=== PATIENT | male | born 1970 | race Caucasian/White ===

== ENCOUNTER 2018-07-08 23:19 | Emergency (ER) | payer OTHER ==
[2018-07-08 23:30] VITALS: BP 138/94; PULSE 88; TEMP 98.5; BMI 63.4
[2018-07-08] MEDS ORDERED: MAG HYDROX/AL HYDROX/SIMETH 30 ML UNIT-DOSE CUP PO ONE (23:38)
--- NOTE | 2018-07-08 23:38 | PDOC ---
History of Present Illness - General History Source: Patient Exam Limitations: No Limitations - History of Present Illness Initial Comments: 07/08/18 23:48 The patient is a 48 year old male, with a significant past medical history of HTN, who presents to the ED complaining of constant LT chest pain and nausea, that began this morning. Patient reports that the chest pain has persisted for over 12 hours, and is worsened when supine, and alleviated by standing. Patient also notes a fluttering chest and feeling gassy. The patient reports he has previously experienced similar symptoms, but they were intermittent and short- lasting. Patient denies diaphoresis and SOB. Patient denies fever and chills. Patient denies vomiting, diarrhea, or constipation. Denies any other symptoms. PAST MEDICAL HISTORY: HTN PAST SURGICAL HISTORY: no significant history FAMILY HISTORY: no pertinent history SOCIAL HISTORY: Pt lives with family and is employed. MEDICATIONS: reviewed ALLERGIES: As per nursing notes General: No fevers or chills, no weakness, no weight loss HEENT: No change in vision. No sore throat,. No ear pain CardioVascular: +LT chest pain. No shortness of breath Respiratory:No cough, or wheezing. Gastrointestinal: +nausea. +gassy. No vomiting, diarrhea or constipation, No rectal bleeding Genitourinary: No dysuria, hematuria, or frequency Musculoskeletal: No joint or muscle pain or swelling Neurologic: No headache, vertigo, dizziness or loss of consciousness Psychiatric: no depression Skin: No rashes or easy bruising Endocrine: no increased thirst or abnormal weight change Allergic: no skin or latex allergy All other systems reviewed and normal General: +morbidly obese. no acute distress HEENT: Throat: Normal, tonsils normal, no erythema or exudate Neck: Supple, no meningeal signs, no lymphadenopathy Eyes::Pupils equal reactive and round, extraocular motion intact Chest: Nontender to palpation Cardiac: S1-S2 normal, regular rate and rhythm, no murmurs rubs or gallops Respiratory: Lungs clear to auscultation bilateral Abdomen: Soft, nondistended, normal bowel sounds, nontender to palpation diffusely Extremities: Warm, dry, no cyanosis, clubbing, or edema Skin: No rashes Neuro: Alert and oriented x3, nonfocal exam, grossly intact, normal gait Psych: Normal mood and affect <Saroj Herring - Last Filed: 07/08/18 23:48> - General History Source: Patient Exam Limitations: No Limitations - History of Present Illness Initial Comments: 07/08/18 23:36 A portion of this note was documented by scribe services under my direction. I have reviewed the details of the note, within reason, and agree with the documentation with the following case summary and management plan written by me. Patient treated in the ED. Nursing notes are reviewed and incorporated into the medical decision-making. Vital signs reviewed. Assessment plan: This is a 48-year-old morbidly obese male who comes in complaining of chest pain since this morning. Patient is had in excess of 12 hours of chest pain that is constant and worse with lying down. Patient only risk factors are obesity and hypertension. However we'll do it EKG and cardiac enzymes 07/08/18 23:47 EKG shows normal sinus rhythm and no acute ST-T wave changes normal intervals it is a normal EKG <Douglas Malloy I - Last Filed: 07/09/18 01:38> - General Chief Complaint: Chest Pain Stated Complaint: CHEST PAIN Time Seen by Provider: 07/08/18 23:22 Past History <Saroj Herring - Last Filed: 07/08/18 23:48> - Past Medical History COPD: No HTN: Yes Other medical history: MORBIDLY OBESE - Immunization History Immunization Up to Date: No - Suicide/Smoking/Psychosocial Hx Smoking Status: No Smoking History: Never smoked Number of Cigarettes Smoked Daily: 0 Hx Alcohol Use: No Drug/Substance Use Hx: No Substance Use Type: None <Douglas Malloy I - Last Filed: 07/09/18 01:38> - Past Medical History Allergies/Adverse Reactions: Allergies Allergy/AdvReac Type Severity Reaction Status Date / Time No Known Allergies Allergy Verified 02/08/16 12:43 Home Medications: Ambulatory Orders Metoprolol Tartrate [Lopressor] 50 mg PO DAILY 07/25/11 Lisinopril [Prinivil] 5 mg PO DAILY 02/16/13 Amlodipine Besylate 07/08/18 Flomax 07/08/18 *Physical Exam - Vital Signs Last Vital Signs Temp Pulse Resp BP Pulse Ox 98.5 F 88 18 138/94 98 07/08/18 23:27 07/08/18 23:27 07/08/18 23:27 07/08/18 23:27 07/08/18 23:27 <Saroj Herring - Last Filed: 07/08/18 23:48> - Vital Signs Last Vital Signs Temp Pulse Resp BP Pulse Ox 98.5 F 88 18 138/94 98 07/08/18 23:27 07/08/18 23:27 07/08/18 23:27 07/08/18 23:27 07/08/18 23:27 <Douglas Malloy I - Last Filed: 07/09/18 01:38> Moderate Sedation - Procedure Monitoring Vital Signs: Procedure Monitoring Vital Signs Temperature 98.5 F 07/08/18 23:27 Pulse Rate 88 07/08/18 23:27 Respiratory Rate 18 07/08/18 23:27 Blood Pressure 138/94 07/08/18 23:27 O2 Sat by Pulse Oximetry (%) 98 07/08/18 23:27 <Saroj Herring - Last Filed: 07/08/18 23:48> - Procedure Monitoring Vital Signs: Procedure Monitoring Vital Signs Temperature 98.5 F 07/08/18 23:27 Pulse Rate 88 07/08/18 23:27 Respiratory Rate 18 07/08/18 23:27 Blood Pressure 138/94 07/08/18 23:27 O2 Sat by Pulse Oximetry (%) 98 07/08/18 23:27 <Douglas Malloy I - Last Filed: 07/09/18 01:38> Heart Score/ECG Review - History History: Slightly suspicious - Electrocardiogram EKG: Normal - Age Age: 45-65 - Risk Factors Risk Factors Heart Score: Yes Hx Hypertension, Yes Hx Obesity Based on the list above the patient has:: 1-2 risk factors - Troponin Troponin: </= normal limit - Score Heart Score - Total: 2 <Douglas Malloy I - Last Filed: 07/09/18 01:38> ED Treatment Course - Medications Given in the ED: ED Medications Discontinued Medications Generic Name Dose Route Start Last Admin Trade Name Freq PRN Reason Stop Dose Admin Al Hydroxide/Mg Hydroxide 30 ml 07/08/18 23:38 07/08/18 23:45 Mylanta Oral Suspension - PO 07/08/18 23:39 30 ml ONCE ONE Administration <Saroj Herring - Last Filed: 07/08/18 23:48> *DC/Admit/Observation/Transfer - Attestations Scribe Attestion: 07/08/18 23:49 Documentation prepared by Saroj Herring, acting as medical social consultant for Douglas Malloy MD. <Saroj Herring - Last Filed: 07/08/18 23:48> - Discharge Dispostion Decision to Admit order: No <Douglas Malloy I - Last Filed: 07/09/18 01:38> Diagnosis at time of Disposition: Chest wall pain - Discharge Dispostion Disposition: HOME Condition at time of disposition: Stable - Referrals Referrals: Michelle Saldivar MD [Primary Care Provider] - - Patient Instructions Additional Instructions: Take Tylenol or Motrin as needed for the pain Return to the emergency department immediately with ANY new, persistent or worsening symptoms. Continue any medications as previously prescribed by your physician. You should follow up with your primary doctor as soon as possible regarding today's emergency department visit. . Please make sure your doctor reviews the results of your emergency evaluation. Thank you for coming to the Emergency Department today for your care. It was a pleasure to see you today. Please note that your evaluation is INCOMPLETE until you follow-up with your doctor. - Post Discharge Activity
[2018-07-08] MEDS ORDERED: MAG HYDROX/AL HYDROX/SIMETH 30 ML UNIT-DOSE CUP ONE (23:44)
--- NOTE | 2018-07-09 08:41 | EKG ---
Test Reason : Blood Pressure : / mmHG Vent. Rate : 079 BPM Atrial Rate : 079 BPM P-R Int : 190 ms QRS Dur : 098 ms QT Int : 380 ms P-R-T Axes : 030 039 057 degrees QTc Int : 435 ms POOR DATA QUALITY, INTERPRETATION MAY BE ADVERSELY AFFECTED NORMAL SINUS RHYTHM NORMAL ECG WHEN COMPARED WITH ECG OF 10-DEC-2014 06:16, NO SIGNIFICANT CHANGE WAS FOUND Confirmed by BLAKE JONES, JACOB ([id number]) on 07/09/2018 8:41:06 AM Referred By: Confirmed By:JACOB LOZANO MD
== END 2018-07-09 01:42 | disposition home or self-care (01) ==
LOC: FER 23:19
DX: R07.89 Other chest pain (principal); I10 Essential (primary) hypertension; E66.01 Morbid (severe) obesity due to excess calories; Z68.44 Body mass index [BMI] 60.0-69.9, adult
CPT/HCPCS: 36415; 82550; 84484; 93005; 99281-25

== ENCOUNTER 2018-08-16 08:42 | Day surgery (SDC) | payer OTHER ==
[2018-08-16 09:20] VITALS: BMI 63.4
[2018-08-16] MEDS ORDERED: MIDAZOLAM HCL 2 MG/2 ML SINGLE DOSE VIAL ONE ×2 (09:20→09:40)
[2018-08-16] MEDS ORDERED: TETRACAINE/BENZOCAINE/BUTAMBEN 20 GM SPR TP ONE (09:34)
[2018-08-16] MEDS ORDERED: LIDOCAINE VISCOUS 2% ORAL/TOP 20 ML UNIT-DOSE CUP MM ONE (09:35)
[2018-08-16 09:59] VITALS: TEMP 98
[2018-08-16 12:38] VITALS: BP 122/64; PULSE 68
--- NOTE | 2018-08-18 16:17 | PATH ---
Surgical Pathology Report Patient Name: SADA PALMER [facility]. Rec. #: [id number] /Age/Gender: 1970 (Age: 48) / M Account: [id number] Location: U-ENDOSCOPY Taken: 08/16/2018 Received: 08/16/2018 Reported: 08/18/2018 Physicians: Preston Ramos M.D. Specimen(s) Received BX ANTRUM Clinical History Screening for bariatric surgery Postoperative diagnosis: Gastritis Final Diagnosis STOMACH, ANTRUM, BIOPSY: GASTRIC ANTRAL MUCOSA WITH MILD CHRONIC GASTRITIS. IMMUNOHISTOCHEMICAL STAIN FOR H. PYLORI IS NEGATIVE. Electronically Signed Macy Torres M.D. Gross Description Received in formalin, labeled "antrum" are 2 earl, irregular portions of soft tissue measuring 0.5 and 0.7 cm. in greatest dimension. The specimens are submitted in toto in one cassette. /08/16/201808/16/2018
== END 2018-08-16 10:49 | disposition home or self-care (01) ==
LOC: JASU-ENDO 08:42
PROVIDERS: ATTEND Internal Medicine Gastroenterology
PROC: 0DB68ZX Excision of Stomach, Via Natural or Artificial Opening Endoscopic, Diagnostic (ICD-10-PCS; principal; 2018-08-16 10:30)
DX: Z01.818 Encounter for other preprocedural examination (principal); E66.01 Morbid (severe) obesity due to excess calories; I10 Essential (primary) hypertension; R06.81 Apnea, not elsewhere classified
CPT/HCPCS: 88305-TC; 88342-TC

== ENCOUNTER 2018-12-11 16:09 | Emergency (ER) | payer OTHER | END 2018-12-11 17:33 | disposition home or self-care (01) | LOC: FER 16:09 ==

== ENCOUNTER 2019-04-22 01:46 | Emergency (ER) | payer OTHER ==
[2019-04-22 02:02] VITALS: BP 117/75; PULSE 74; TEMP 98.2; BMI 43.7
--- NOTE | 2019-04-22 02:09 | PDOC ---
History of Present Illness - General Chief Complaint: Chest Pain Stated Complaint: CHEST PAIN Time Seen by Provider: 04/22/19 02:08 History Source: Patient - History of Present Illness Initial Comments: 04/22/19 02:08 Joe Sexton is a 48M with PMH CAD (w/o stenting 2/2 collaterals), gastric sleeve (August 2018), GERD, BPH, HLD presenting with nonspecific chest pain with nausea. Patient reports a sensation of a discomfort under his left anterior chest that moves around from different points across sternum to axilla, comes and goes throughout the day, denies any palpitations or SOB associated. Unrelated to meals or position. Last cardiology appointment with Dr. Groves in December, patient says his heart was doing well, had ECG with ECHO. Has been having these chest sensations sporadically since then. Had the gastric sleeve done in August 2018, has been following diet, eating small amounts and says that sometimes he does not eat enough. Presenting to ED today because he has been having chest pain and nausea without vomiting. Denies constipation/diarrhea, had a BM today without issue. Denies fever, chills, abdominal pain, urinary symptoms. Says that his BP is labile; per PMD Saldivar, takes metoprolol first, then adds amlodipine and lisinopril if BP elevates too much. Past History - Past Medical History Allergies/Adverse Reactions: Allergies Allergy/AdvReac Type Severity Reaction Status Date / Time No Known Allergies Allergy Verified 04/22/19 02:01 Home Medications: Ambulatory Orders Metoprolol Tartrate [Lopressor] 50 mg PO DAILY 07/25/11 Tamsulosin HCl [Flomax] 1 cap PO HS 07/08/18 Atorvastatin Ca [Lipitor] 40 mg PO HS 08/16/18 Calcium Carb, Citrate/Vit D3 [Calcium + D3 ER Tablet] 1 each PO DAILY 08/16/18 Colchicine 0.6 mg PO DAILY PRN 08/16/18 Pantoprazole Sodium [Protonix -] 0 mg PO DAILY 12/11/18 COPD: No GI Disorders: Yes (GERD) Disorders: Yes (UTI) HTN: Yes Hypercholesterolemia: Yes Kidney Stones: Yes - Surgical History Abdominal Surgery: Yes (GASTRIC SLEEVE 3 MONTHS AGO.) Orthopedic Surgery: Yes (BILATERAL KNEE ARTHROSCOPY) - Immunization History Immunization Up to Date: No - Psycho Social/Smoking Cessation Hx Smoking Status: No Smoking History: Unknown if ever smoked Have you smoked in the past 12 months: No Number of Cigarettes Smoked Daily: 0 Information on smoking cessation initiated: No Hx Alcohol Use: No Drug/Substance Use Hx: No Substance Use Type: None Hx Substance Use Treatment: No Review of Systems - Review of Systems Constitutional: Yes: Loss of Appetite (s/p gastric sleeve) HEENTM: No: Symptoms Reported, Blurred Vision (wears glasses), Throat Swelling, Mouth Pain Respiratory: No: Cough, Shortness of Breath Cardiac (ROS): Yes: Chest Pain. No: Lightheadedness, Palpitations, Syncope ABD/GI: Yes: Nausea. No: Constipated, Diarrhea, Difficulty Swallowing, Vomiting : Yes: Other (no retention, on Flomax). No: Symptoms Reported Musculoskeletal: No: Symptoms Reported Integumentary: No: Symptoms Reported Neurological: Yes: Weakness (both arms earlier today) Psychiatric: No: Anxiety Endocrine: No: Symptoms Reported Hematologic/Lymphatic: No: Symptoms Reported All Other Systems: Reviewed and Negative *Physical Exam - Vital Signs Last Vital Signs Temp Pulse Resp BP Pulse Ox 98.2 F 74 20 117/75 99 04/22/19 02:01 04/22/19 02:01 04/22/19 02:01 04/22/19 02:01 04/22/19 02:01 - Physical Exam General Appearance: Yes: Nourished, Appropriately Dressed, Obese. No: Apparent Distress HEENT: positive: EOMI, SHERON, Normal ENT Inspection, Normal Voice, Symmetrical, Pharynx Normal, Hearing Grossly Normal. negative: Scleral Icterus (R), Scleral Icterus (L), Pharyngeal Erythema, Tonsillar Exudate, Tonsillar Erythema, Rhinorrhea, Thrush Neck: positive: Trachea midline, Supple. negative: Tender, Stridor, Lymphadenopathy (R), Lymphadenopathy (L) Respiratory/Chest: positive: Lungs Clear, Normal Breath Sounds. negative: Chest Tender (unable to reproduce chest pain), Respiratory Distress, Accessory Muscle Use, Labored Respiration, Crackles, Rales, Rhonchi Cardiovascular: positive: Regular Rhythm. negative: Edema, Murmur Gastrointestinal/Abdominal: positive: Normal Bowel Sounds, Soft, Protuberent, Other (Knowles sign negative). negative: Tender, Guarding, Rebound, Hernia Musculoskeletal: positive: Normal Inspection. negative: CVA Tenderness Extremity: positive: Normal Capillary Refill, Normal Inspection, Normal Range of Motion. negative: Tender, Cyanosis, Pedal Edema, Swelling, Calf Tenderness, Erythema Integumentary: positive: Normal Color, Dry, Warm Neurologic: positive: Alert, Normal Mood/Affect, Normal Response ED Treatment Course - LABORATORY CBC & Chemistry Diagram: 04/22/19 03:00 04/22/19 03:45 Medical Decision Making - Medical Decision Making 04/22/19 02:08 Joe Sexton is a 48M with PMH CAD (w/o stenting 2/2 collaterals), gastric sleeve (August 2018), GERD, BPH, HLD presenting with nonspecific chest pain with nausea. Patient presentation is most concerning for ACS given cardiac history, high risk of cardic etiology. Ddx includes PE, PTX, esophageal rupture 2/2 GERD, less likely since patient denies any respiratory symptoms or difficulty swallowing or excessive vomiting. Will evaluate via: CMP CBC Coags ECG CXR Lipase 04/22/19 03:40 CBC unremarkable. CMP, CP, Lipase, and Coags hemolyzed, will re-draw. 04/22/19 03:46 ECG shows NSR with HR 75, QTc 480, no evidence of ischemic changes or repolarization disturbances. 04/22/19 04:40 Lab results show no evidence of electrolyte abnormalities. Initial troponin negative, low probability of cardiac etiology to begin with, has been having chest pain for weeks. Most likely related to GERD. Patient denies chest pain at this time. Got Zofran, Pepcid, and 1L NS for nausea control, satisfied with resolution of nausea. Patient stable to be discharged home with PMD/Cards/GI f/u. Discharge - Discharge Information Problems reviewed: Yes Clinical Impression/Diagnosis: Chest pain Qualifiers: Chest pain type: unspecified Qualified Code(s): R07.9 - Chest pain, unspecified Condition: Stable Disposition: HOME - Admission No - Follow up/Referral Referrals: Michelle Saldivar MD [Primary Care Provider] - Silvano Groves MD [Staff Physician] - - Patient Discharge Instructions Patient Printed Discharge Instructions: DI for Atypical Chest Pain Additional Instructions: Today you were evaluated for a chest sensation. Your blood labs do not show any evidence of a heart attack, anemia, or infection. Your chest X-ray does not show evidence of an enlarged heart or pneumonia. Your ECG has no concerning findings for a heart attack. Your chest pain and nausea is most likely related to your gastric sleeve, either because of gastric reflux (GERD) or something not agreeing with your stomach. Please follow-up with Dr. Saldivar in the next 3 days for further care. Please also see your surgeon and manager publishing Dr. Groves in the next week to follow -up and get an ECHO with stress test. If you experience worsening chest pain, uncontrollable vomiting, abdominal pain, bloody bowel movements, or any other new or concerning symptoms, please return to the emergency room. - Post Discharge Activity
--- NOTE | 2019-04-22 02:11 | PDOC ---
Attending Attestation - Resident Resident Name: Ernesto Bullock - ED Attending Attestation I have performed the following: I have examined & evaluated the patient, The case was reviewed & discussed with the resident, I agree w/resident's findings & plan - HPI HPI: 04/22/19 03:04 Pt comes with chest pain that began on off x 2 months, again tonight associated with nausea. - Physicial Exam PE: 04/22/19 04:43 Pt is obese; states that he lost 130lbs after the gastric sleeve; he has been complaint with the diet. Got nervous with the nausea that he was feeling today. Afebrile no SOB, no cough and no vomiting or diarrhea - Medical Decision Making 04/22/19 04:31 Labs are normal; EKG NSR; CXR cardiomegaly as usual. Vitals normal Exam normal Pt is stable for discharge home. 04/22/19 04:45 Pt feels well and is ready to go home.
[2019-04-22] MEDS ORDERED: ONDANSETRON 4 MG TABLET PO PRN (02:41)
[2019-04-22] MEDS ORDERED: FAMOTIDINE 20 MG/50 ML IVPB 20 MG/50 ML MG IVPB ONE ×2 (02:41→03:12)
[2019-04-22] MEDS ORDERED: SODIUM CHLORIDE 0.9% 500 ML INFUS.BAG IV ONE (02:41)
[2019-04-22] MEDS ORDERED: ONDANSETRON *ODT* 4 MG TABLET ONE (03:02)
[2019-04-22] MEDS ORDERED: ASPIRIN 81 MG CHEWABLE TABLETS PO ONE (03:03)
[2019-04-22 03:12] LABS: BASO % 0.6 % (0-2.0); EOS % 1.3 % (0-4.5); HEMATOCRIT 41.4 % (35.4-49); HEMOGLOBIN 13.4 GM/dL (11.7-16.9); LYMPH % 17.9 % (8-40); MCH 28.5 pg (25.7-33.7); MCHC 32.5 g/dl (32.0-35.9); MEAN CELL VOLUME 87.6 fl (80-96); MEAN PLT VOLUME 10.5 fl (7.5-11.1); MONO % 7.3 % (3.8-10.2); NEUT % 72.9 % (42.8-82.8); PLATELET COUNT 195 K/MM3 (134-434); RBC 4.72 M/mm3 (4.00-5.60); RDW 15.5 % (11.9-15.9)
[2019-04-22] MEDS ORDERED: ASPIRIN 81 MG CHEWABLE TABLETS ONE (03:12)
[2019-04-22 04:16] LABS: INR 1.35 (0.83-1.09)
[2019-04-22 04:30] LABS: ALBUMIN 3.4 g/dl (3.4-5.0); ALK PHOS 108 U/L (45-117); ANION GAP 8 MMOL/L (8-16); BILIRUBIN,TOTAL 0.4 mg/dL (0.2-1); BLOOD UREA NITROGEN 16.7 mg/dL (7-18); CALCIUM 8.6 mg/dL (8.5-10.1); CHLORIDE 106 mmol/L (98-107); CO2 29 mmol/L (21-32); CREATININE 0.7 mg/dL (0.55-1.3); GLUCOSE,RANDOM 107 mg/dL (74-106); POTASSIUM 3.6 mmol/L (3.5-5.1); SGOT/AST 12 U/L (15-37); SGPT/ALT 10 U/L (13-61); SODIUM 142 mmol/L (136-145); TOT PROT 6.4 g/dl (6.4-8.2)
--- NOTE | 2019-04-22 14:47 | EKG ---
Test Reason : Blood Pressure : / mmHG Vent. Rate : 075 BPM Atrial Rate : 075 BPM P-R Int : 194 ms QRS Dur : 100 ms QT Int : 430 ms P-R-T Axes : 045 000 054 degrees QTc Int : 480 ms NORMAL SINUS RHYTHM CANNOT RULE OUT INFERIOR INFARCT , AGE UNDETERMINED ABNORMAL ECG WHEN COMPARED WITH ECG OF 08-JUL-2018 23:48, NO SIGNIFICANT CHANGE WAS FOUND Confirmed by BLAKE JONES, JACOB ([id number]) on 04/22/2019 2:46:39 PM Referred By: Confirmed By:JACOB LOZANO MD
== END 2019-04-22 04:53 | disposition home or self-care (01) ==
LOC: JER 01:46
PROC: 3E033GC Introduction of Other Therapeutic Substance into Peripheral Vein, Percutaneous Approach (ICD-10-PCS; principal; 2019-04-22)
DX: Z95.5 Presence of coronary angioplasty implant and graft (principal); R07.9 Chest pain, unspecified; I25.10 Atherosclerotic heart disease of native coronary artery without angina pectoris; I10 Essential (primary) hypertension; E78.5 Hyperlipidemia, unspecified; K21.9 Gastro-esophageal reflux disease without esophagitis; N40.0 Benign prostatic hyperplasia without lower urinary tract symptoms; Z98.84 Bariatric surgery status; E66.01 Morbid (severe) obesity due to excess calories; Z68.41 Body mass index [BMI] 40.0-44.9, adult; Z87.442 Personal history of urinary calculi; Z87.440 Personal history of urinary (tract) infections
CPT/HCPCS: 36415; 71045-TC-FY; 80053; 82550; 83690; 84484; 85025; 85610; 85730; 93005; 93010; 96365; 99283-25

== ENCOUNTER 2019-12-29 16:48 | Emergency (ER) | payer OTHER ==
--- NOTE | 2019-12-29 16:59 | PDOC ---
Rapid Medical Evaluation Time Seen by Provider: 12/29/19 16:53 Medical Evaluation: Allergies Allergy/AdvReac Type Severity Reaction Status Date / Time No Known Allergies Allergy Verified 04/22/19 02:01 12/29/19 16:56 I performed a brief in-person evaluation of this patient. Pt is a 49 y/o male with chest heaviness since this morning. The patient has a h/o coronary blockage with collaterals. He denies having a CABG or stents at this time. He has a h/o HTN, gastric sleeve (2019), HLD, GERD. pt is unable to take ASA. Pertinent physical exam findings: speaking in full sentences, no respiratory distress I have ordered the following: ekg, cardiac labs, monitor tech, cxr Patient to proceed to ED for further evaluation. Discharge Disposition - Diagnosis Chest pain - Referrals - Patient Instructions - Post Discharge Activity
[2019-12-29 17:00] VITALS: BMI 37.0
--- NOTE | 2019-12-29 17:10 | PDOC ---
History of Present Illness - General Chief Complaint: Chest Pain Stated Complaint: CHEST PAIN Time Seen by Provider: 12/29/19 16:53 History Source: Patient Exam Limitations: No Limitations - History of Present Illness Initial Comments: 12/29/19 17:10 Joe Sexton is a 49M with PMH CAD with 80% occluded RCA obstruction with good collaterals without stenting, gastric sleeve in 2019, GERD, presenting with non- specific epigastric fullness. Patient has 2 days of sensation of fullness in his epigastric region with nausea and vomiting. Denies fever, chills, chest pain, SOB. Saw Dr. Groves with cardiology 5 days prior, scheduled stress test for 01/12/20, last ECHO last year WNL. Has had increased belching and GERD recently. Appropriate weight loss with sleeve, has been tolerating food/drink but eating less recently, not hydrating despite weather. 2 days ago was bending down, felt lightheaded, sat down for 20 seconds and likely syncopized but did not hit head. Yesterday and today feeling worse epigastric fullness, no chest pain, called cards office who recommended ED for evaluation. [facility] gastric sleeve EGD with Dr. Casillas Jul 2019. Surgeon Dr. Suarez at [facility]. Olivia Groves Past History - Medical History Allergies/Adverse Reactions: Allergies Allergy/AdvReac Type Severity Reaction Status Date / Time No Known Allergies Allergy Verified 12/29/19 16:57 Home Medications: Ambulatory Orders Metoprolol Tartrate [Lopressor] 50 mg PO DAILY 07/25/11 Tamsulosin HCl [Flomax] 1 cap PO HS 07/08/18 Atorvastatin Ca [Lipitor] 40 mg PO HS 08/16/18 Pantoprazole Sodium [Protonix -] 20 mg PO DAILY 12/11/18 Lisinopril 10 mg PO DAILY 12/29/19 COPD: No GI Disorders: Yes (GERD) Disorders: Yes (UTI) HTN: Yes Hypercholesterolemia: Yes Kidney Stones: Yes - Surgical History Abdominal Surgery: Yes (GASTRIC SLEEVE 3 MONTHS AGO.) Orthopedic Surgery: Yes (BILATERAL KNEE ARTHROSCOPY) - Immunization History Td Vaccination: Yes TDAP Vaccination: Yes Immunization Up to Date: No - Psycho-Social/Smoking History Smoking Status: No Smoking History: Never smoked Have you smoked in the past 12 months: No Number of Cigarettes Smoked Daily: 0 - Substance Abuse Hx (Audit-C & DAST Scrn) How often the patient has a drink containing alcohol: Never Score: In Men: 4 or > Positive; In Women: 3 or > Positive: 0 Screen Result (Pos requires Nsg. Audit-10AR): Negative In the last yr the pt used illegal drug/Rx for NonMed reason: No Score: Yes response is considered Positive: 0 Screen Result (Positive result requires Nsg. DAST-10): Negative Review of Systems - Review of Systems Able to Perform ROS?: Yes Constitutional: No: Chills, Fever HEENTM: No: Symptoms Reported Respiratory: No: Symptoms reported Cardiac (ROS): Yes: Lightheadedness, Syncope. No: Chest Pain, Edema ABD/GI: Yes: Poor Appetite, Poor Fluid Intake. No: Constipated, Diarrhea, Nausea, Vomiting : No: Symptoms Reported Musculoskeletal: No: Symptoms Reported Integumentary: No: Symptoms Reported Neurological: No: Symptoms reported Endocrine: No: Symptoms Reported Hematologic/Lymphatic: No: Symptoms Reported All Other Systems: Reviewed and Negative *Physical Exam - Vital Signs Last Vital Signs Temp Pulse Resp BP Pulse Ox 98.9 F 67 18 136/78 99 12/29/19 16:57 12/29/19 16:57 12/29/19 16:57 12/29/19 16:57 12/29/19 16:57 - Physical Exam General Appearance: Yes: Nourished, Appropriately Dressed. No: Apparent Distress HEENT: positive: EOMI, SHERON, Normal Voice, Symmetrical, Pharynx Normal. negative: Scleral Icterus (R), Scleral Icterus (L), Pharyngeal Erythema, Tonsillar Exudate, Tonsillar Erythema Neck: positive: Trachea midline, Normal Thyroid, Supple. negative: Tender, Lymphadenopathy (R), Lymphadenopathy (L) Respiratory/Chest: positive: Lungs Clear, Normal Breath Sounds. negative: Chest Tender, Respiratory Distress, Accessory Muscle Use, Crackles, Rales, Rhonchi, Stridor, Wheezing Cardiovascular: positive: Regular Rhythm, Regular Rate, Other (no chest tenderness). negative: Murmur Gastrointestinal/Abdominal: positive: Normal Bowel Sounds, Flat, Soft, Other ( well-healed laparoscopic incisions). negative: Tender, Organomegaly, Guarding, Rebound, Tenderness, Hernia Musculoskeletal: positive: Normal Inspection. negative: CVA Tenderness, CVA Tenderness (R), CVA Tenderness (L), Decreased Range of Motion, Vertebral Tenderness Extremity: positive: Normal Capillary Refill, Normal Inspection. negative: Normal Range of Motion, Tender, Pedal Edema, Swelling Integumentary: positive: Normal Color, Dry, Warm Neurologic: positive: college teacher II-XII NML intact, Fully Oriented, Alert, Normal Mood/Affect, Motor Strength 10/30 ED Treatment Course - LABORATORY CBC & Chemistry Diagram: 12/29/19 17:15 12/29/19 17:15 Medical Decision Making - Medical Decision Making 12/29/19 21:08 Patient has PMH CAD and gastric sleeve, presents with epigastric pain and nausea concerning for ACS vs. gallstones vs. GERD vs. SBO vs. pancreatitis. Physical exam non-tender, sensation of fullness with burping in ED, more likely GERD vs. gallstones. Getting CBC, CMP, CP, ECG, CXR, lipase, RUQ US. Giving Pepcid, Maalox, Zofran for nausea, Protonix for GERD. Labs notable for: - CMP WNL - CBC WNL - trop negative - lipase WNL ECG NSR with HR 63, QTc 429, no DEB/D or TWI. CXR unremarkable Given cardiac history, getting 2 trop at 3hr and will dispo home with card/GI f/u. 12/29/19 23:00 Re-evaluated, feeling better, says he now feels more GERD and burping after medications. 2nd trop negative, patient clear for discharge home with PMD/cards/GI f/u. Discharge - Discharge Information Problems reviewed: Yes Clinical Impression/Diagnosis: Epigastric pain Condition: Improved Disposition: HOME - Admission No - Follow up/Referral - Patient Discharge Instructions Patient Printed Discharge Instructions: DI for Atypical Chest Pain Additional Instructions: Today you were evaluated for abdominal pain. Your labs and ECG are normal. Yous pain is likely due to GERD. At home, take Maalox and omepazole as needed. See Dr. Ramos and Dr. Groves in the next week for further care. If you have any worsening abdominal pain, lightheadedness, or chest pain, or have any other new or concerning symptoms, please return to the emergency room. - Post Discharge Activity
[2019-12-29] MEDS ORDERED: MAG HYDROX/AL HYDROX/SIMETH 30 ML UNIT-DOSE CUP PO ONE (17:15)
[2019-12-29] MEDS ORDERED: FAMOTIDINE 20 MG/50 ML IVPB 20 MG/50 ML MG IVPB ONE ×2 (17:15→17:23)
[2019-12-29] MEDS ORDERED: MAG HYDROX/AL HYDROX/SIMETH 30 ML UNIT-DOSE CUP ONE (17:22)
[2019-12-29] MEDS ORDERED: ONDANSETRON 4 MG/2 ML VIAL IVPUSH ONE (17:36)
[2019-12-29 17:49] LABS: BASO % 0.5 % (0-2.0); EOS % 0.8 % (0-4.5); HEMATOCRIT 45.4 % (35.4-49); HEMOGLOBIN 14.7 GM/dL (11.7-16.9); LYMPH % 21.4 % (8-40); MCH 28.8 pg (25.7-33.7); MCHC 32.3 g/dl (32.0-35.9); MEAN CELL VOLUME 89.2 fl (80-96); MEAN PLT VOLUME 9.7 fl (7.5-11.1); MONO % 6.8 % (3.8-10.2); NEUT % 70.5 % (42.8-82.8); PLATELET COUNT 170 K/MM3 (134-434); RBC 5.09 M/mm3 (4.00-5.60); RDW 14.3 % (11.9-15.9); WHITE BLOOD COUNT 7.6 K/mm3 (4.0-10.0)
[2019-12-29 17:55] LABS: INR 1.18 (0.83-1.09); PROTHROMBIN TIME (PATIENT) 13.9 SEC (9.7-13.0)
[2019-12-29 17:58] LABS: ACTIVATED PTT 34.7 SECONDS (25.2-36.5)
[2019-12-29 18:16] LABS: ALBUMIN 3.9 g/dl (3.4-5.0); ALK PHOS 101 U/L (45-117); ANION GAP 6 MMOL/L (8-16); BILIRUBIN,TOTAL 0.8 mg/dL (0.2-1); BLOOD UREA NITROGEN 16.8 mg/dL (7-18); CHLORIDE 102 mmol/L (98-107); CO2 30 mmol/L (21-32); CREATININE 1.1 mg/dL (0.55-1.3); GLUCOSE,RANDOM 98 mg/dL (74-106); LIPASE 101 U/L (73-393); MAGNESIUM 2.6 mg/dL (1.8-2.4); POTASSIUM 4.1 mmol/L (3.5-5.1); SGOT/AST 14 U/L (15-37); SGPT/ALT 10 U/L (13-61); SODIUM 138 mmol/L (136-145); TOT PROT 7.3 g/dl (6.4-8.2)
--- NOTE | 2019-12-29 19:55 | PDOC ---
Documentation entered by Kassandra Newton SCRIBE, acting as scribe for Ge Mckenzie MD. Ge Mckenzie MD: This documentation has been prepared by the Lamar de la torre Brenda, SCRIBE, under my direction and personally reviewed by me in its entirety. I confirm that the documentation accurately reflects all work, treatment, procedures, and medical decision making performed by me. Attending Attestation - Resident Resident Name: RejichristopherErnesto - ED Attending Attestation I have performed the following: I have examined & evaluated the patient, The case was reviewed & discussed with the resident, I agree w/resident's findings & plan, Exceptions are as noted - HPI HPI: 12/29/19 18:02 The patient is a 49 year old male with a significant PMH of gastric sleeve, cervical spinal fusion and CAD who presents to the ED for evaluation of epigastric pain for a few days. Patient notes that he feels fullness of his epigastric region. He also reports that 2 days ago he was kneeling down picking something up, at which point he stood up and "blacked" out and fell on his behind. No associaed cp, sob, palitation, n/v, diphoresis, abd pain - states he talked to hi cadiologist and was told to hydrate. Denies head trauma. He also notes feeling nauseas and having one epsiode of NBNB vpmitting lastnight after eating a cheeseburger and some eggs, state hte pain lasted ~ 30 min, and resolved. This morning he felt midly nauseus w/o and pain. Denie sany further lightheadedness/syncopy. The patient denies chest pain, palpitations, shortness of breath, headache and current dizziness. Denies fever, chills, diarrhea and constipation. Denies dysuria, frequency, urgency and hematuria. Allergies: NKA Past surgical history: Gastric sleeve Social history: No reported hx of tobacco use, alcohol use or illicit drug use. Cards: [employer] - Physicial Exam PE: 12/29/19 18:02 GENERAL: The patient is awake, alert, and fully oriented, Nontoxic - in no acute distress. HEAD: Normocephalic, atraumatic. EYES: extraocular movements intact, sclera anicteric, conjunctiva clear. ENT: Normal voice, Moist mucous membranes. NECK: Normal range of motion, supple without lymphadenopathy, JVD, or masses. LUNGS: Breath sounds equal, clear to auscultation bilaterally. No wheezes, no crackles, no rales. HEART: Regular rate and rhythm, normal S1 and S2 without murmur, rub or gallop. ABDOMEN: Soft, nontender, normoactive bowel sounds. No guarding, no rebound. No masses. EXTREMITIES: Normal range of motion, no edema. No clubbing or cyanosis. No cords, erythema, or tenderness. NEUROLOGICAL: No facial asymmetry, Normal speech. PSYCH: Normal mood, normal affect. SKIN: Warm, Dry, normal turgor, no rashes or lesions noted. - Medical Decision Making 12/29/19 19:49 Differential for the patient's symptoms includes possible gallbladder disease, pancreatitis, ACS, gastritis. Patient currently feeling well, low suspicion of ACS as the symptoms are nonexertional. Patient's EKG is unremarkable lab work also unremarkable, troponins negative. Patient gallbladder ultrasound was negative for acute disease. I suspect the patient's symptoms May be related to possible gastirits - Will have the patient follow-up with PMD And cardiology Low suspicion for ACS, will obtain a troponin in 1 hour Heart Score/ECG Review - ECG Impressions Comment:: 12/29/19 19:50 Twelve-lead EKG was performed and reviewed by me. There is normal sinus rhythm with a normal rate. Rate of 63 The axis is normal. The intervals are normal. There is normal R wave progression There are no ST or T wave abnormalities. Impression: Normal twelve-lead EKG Discharge - Discharge Information Problems reviewed: Yes Clinical Impression/Diagnosis: Epigastric pain Condition: Improved Disposition: HOME - Follow up/Referral - Patient Discharge Instructions Patient Printed Discharge Instructions: DI for Atypical Chest Pain Additional Instructions: Today you were evaluated for abdominal pain. Your labs and ECG are normal. Yous pain is likely due to GERD. At home, take Maalox and omepazole as needed. See Dr. Ramos and Dr. Groves in the next week for further care. If you have any worsening abdominal pain, lightheadedness, or chest pain, or have any other new or concerning symptoms, please return to the emergency room. - Post Discharge Activity
[2019-12-29] MEDS ORDERED: PANTOPRAZOLE SODIUM 40 MG VIAL IVPUSH ONE (21:03)
[2019-12-29] MEDS ORDERED: PANTOPRAZOLE SODIUM 40 MG VIAL ONE (21:12)
[2019-12-29 22:03] VITALS: BP 130/72; PULSE 69; TEMP 98.1
--- NOTE | 2019-12-31 14:15 | EKG ---
Test Reason : Blood Pressure : / mmHG Vent. Rate : 063 BPM Atrial Rate : 063 BPM P-R Int : 190 ms QRS Dur : 100 ms QT Int : 420 ms P-R-T Axes : 060 007 057 degrees QTc Int : 429 ms NORMAL SINUS RHYTHM NORMAL ECG WHEN COMPARED WITH ECG OF 22-APR-2019 01:56, NO SIGNIFICANT CHANGE WAS FOUND Confirmed by YUAN CARRIZALES MD ([id number]) on 12/31/2019 2:15:26 PM Referred By: Confirmed By:YUAN CARRIZALES MD
== END 2019-12-29 22:40 | disposition home or self-care (01) ==
LOC: JER 16:48
PROC: 3E033GC Introduction of Other Therapeutic Substance into Peripheral Vein, Percutaneous Approach (ICD-10-PCS; principal; 2019-12-29)
DX: R10.13 Epigastric pain (principal)
CPT/HCPCS: 36415; 71046-TC-FY; 76705-TC; 80053; 82550; 83690; 83735; 83880; 84484; 85025; 85610; 85730; 93005; 93010; 99285-25

== ENCOUNTER 2020-09-01 14:21 | Inpatient (IN) | payer OTHER ==
[2020-09-01] MEDS ORDERED: PANTOPRAZOLE SODIUM 40 MG VIAL IVPUSH ONE (16:03)
[2020-09-01] MEDS ORDERED: PANTOPRAZOLE SODIUM 40 MG VIAL ONE (16:07)
[2020-09-01 16:34] LABS: BASO % 0.3 % (0-2.0); EOS % 0.8 % (0-4.5); HEMATOCRIT 42.1 % (35.4-49); LYMPH % 19.9 % (8-40); MCH 30.1 pg (25.7-33.7); MCHC 33.3 g/dl (32.0-35.9); MEAN CELL VOLUME 90.4 fl (80-96); MEAN PLT VOLUME 9.5 fl (7.5-11.1); MONO % 6.7 % (3.8-10.2); NEUT % 72.3 % (42.8-82.8); PLATELET COUNT 165 K/MM3 (134-434); RBC 4.65 M/mm3 (4.00-5.60); RDW 15.3 % (11.9-15.9); WHITE BLOOD COUNT 7.1 K/mm3 (4.0-10.0)
[2020-09-01 16:52] LABS: CHLORIDE 104 mmol/L (98-107); POTASSIUM 4.2 mmol/L (3.5-5.1); SODIUM 138 mmol/L (136-145)
[2020-09-01 16:54] LABS: BLOOD UREA NITROGEN 18.8 mg/dL (7-18); CALCIUM 8.8 mg/dL (8.5-10.1); LIPASE 100 U/L (73-393)
[2020-09-01 16:55] LABS: ANION GAP 3 MMOL/L (8-16); CO2 31 mmol/L (21-32); GLUCOSE,RANDOM 103 mg/dL (74-106)
[2020-09-01 16:57] LABS: CREATININE 0.9 mg/dL (0.55-1.3); SGOT/AST 19 U/L (15-37); SGPT/ALT 13 U/L (13-61)
[2020-09-01 16:59] LABS: BILIRUBIN,TOTAL 0.4 mg/dL (0.2-1); TOT PROT 7.5 g/dl (6.4-8.2)
[2020-09-01 17:00] LABS: ALK PHOS 87 U/L (45-117)
[2020-09-01] MEDS ORDERED: ASPIRIN 325 MG TABLET PO ONE (20:53)
[2020-09-01] MEDS ORDERED: ASPIRIN 325 MG ENTERIC COATED TABLET (FP) ONE (20:58)
[2020-09-02 07:27] LABS: CHOLESTEROL 113 mg/dL (50-200)
[2020-09-02 07:28] LABS: LDL CHOLESTEROL (ONLY SJRH) 57 mg/dL (5-100); TRIGLYCERIDES 49 mg/dL (0-150)
[2020-09-02 07:30] LABS: HDL CHOLESTEROL 50 mg/dL (40-60)
[2020-09-02] MEDS ORDERED: LISINOPRIL 5 MG TABLET ONE (09:16)
[2020-09-02] MEDS ORDERED: METOPROLOL TARTRATE 50 MG TABLET (FP) ONE (09:16)
[2020-09-02] MEDS ORDERED: PANTOPRAZOLE 20 MG TABLET PO ONE (09:16)
[2020-09-02] MEDS: LISINOPRIL 10 MG TABLET PO SCH (09:21)
[2020-09-02] MEDS ORDERED: PANTOPRAZOLE 20 MG TABLET PO SCH (10:00)
[2020-09-02] MEDS ORDERED: METOPROLOL TARTRATE 50 MG TABLET (FP) PO SCH (10:00)
[2020-09-02 10:18] VITALS: BMI 35.9
[2020-09-02] MEDS ORDERED: MAG HYDROX/AL HYDROX/SIMETH 30 ML UNIT-DOSE CUP PO PRN (12:28)
[2020-09-02] MEDS: PANTOPRAZOLE 40 MG TABLET PO SCH (21:20)
[2020-09-02] MEDS ORDERED: TAMSULOSIN HCL 0.4 MG CAP PO SCH (22:00)
[2020-09-02] MEDS ORDERED: ATORVASTATIN CA 40 MG TABLET (FP) PO SCH (22:00)
[2020-09-03] MEDS: PANTOPRAZOLE 40 MG TABLET PO SCH (09:08)
[2020-09-03] MEDS: LISINOPRIL 10 MG TABLET PO SCH (09:08)
[2020-09-03] MEDS ORDERED: PT OWN MED DRAWER 7, Y5N ONE (09:35)
[2020-09-03 14:12] VITALS: BP 132/77
[2020-09-03 14:44] VITALS: PULSE 83; TEMP 97.5
[2020-09-03] MEDS ORDERED: PANTOPRAZOLE 40 MG TABLET PO SCH (22:00)
== END 2020-09-03 17:40 | disposition home or self-care (01) | DRG 392 ==
LOC: JER 14:21 → JERBED 20:47 → J4W 09-02 09:45
PROVIDERS: ADMIT Hospitalist; ATTEND Internal Medicine
PROC: 0DB78ZX Excision of Stomach, Pylorus, Via Natural or Artificial Opening Endoscopic, Diagnostic (ICD-10-PCS; 2020-09-03)
PROC: 0DB58ZX Excision of Esophagus, Via Natural or Artificial Opening Endoscopic, Diagnostic (ICD-10-PCS; 2020-09-03)
PROC: 0DB98ZX Excision of Duodenum, Via Natural or Artificial Opening Endoscopic, Diagnostic (ICD-10-PCS; principal; 2020-09-03 12:00)
DX: K29.40 Chronic atrophic gastritis without bleeding (principal); I31.3 Pericardial effusion (noninflammatory); I50.32 Chronic diastolic (congestive) heart failure; K31.9 Disease of stomach and duodenum, unspecified; K20.90 Esophagitis, unspecified without bleeding; Z98.84 Bariatric surgery status; K21.9 Gastro-esophageal reflux disease without esophagitis; E78.00 Pure hypercholesterolemia, unspecified; I25.10 Atherosclerotic heart disease of native coronary artery without angina pectoris; E66.9 Obesity, unspecified; Z68.35 Body mass index [BMI] 35.0-35.9, adult; F41.8 Other specified anxiety disorders; G47.30 Sleep apnea, unspecified; I11.0 Hypertensive heart disease with heart failure; N40.0 Benign prostatic hyperplasia without lower urinary tract symptoms; R10.13 Epigastric pain; M54.5 Low back pain; Z87.442 Personal history of urinary calculi; K44.9 Diaphragmatic hernia without obstruction or gangrene; Z20.822 Contact with and (suspected) exposure to COVID-19
CPT/HCPCS: 36415; 71046-TC-FY; 74177-TC; 80053; 80061; 81003; 82306; 82550; 82607; 82728; 83036; 83690; 83721; 84443; 84484; 85025; 85027; 85379; 85651; 86769; 88305-TC; 93005; 93010; 93306-TC; 99285-25; C9803; U0003

== ENCOUNTER 2020-09-30 13:00 | Emergency (ER) | payer OTHER ==
[2020-09-30 13:20] VITALS: BMI 35.4
[2020-09-30] MEDS ORDERED: SODIUM CHLORIDE 0.9% 500 ML INFUS.BAG IV ONE (15:29)
[2020-09-30] MEDS ORDERED: METOCLOPRAMIDE HCL INJECTION 10 MG/2 ML VIAL IVPUSH ONE (15:29)
[2020-09-30] MEDS ORDERED: METOCLOPRAMIDE HCL INJECTION 10 MG/2 ML VIAL ONE (15:46)
[2020-09-30 16:19] LABS: BASO % 0.4 % (0-2.0); HEMATOCRIT 44.2 % (35.4-49); HEMOGLOBIN 14.5 GM/dL (11.7-16.9); LYMPH % 23.8 % (8-40); MCH 30.1 pg (25.7-33.7); MCHC 32.9 g/dl (32.0-35.9); MEAN CELL VOLUME 91.6 fl (80-96); MEAN PLT VOLUME 9.9 fl (7.5-11.1); MONO % 7.6 % (3.8-10.2); NEUT % 67.2 % (42.8-82.8); PLATELET COUNT 181 K/MM3 (134-434); RBC 4.82 M/mm3 (4.00-5.60); RDW 14.7 % (11.9-15.9)
[2020-09-30 16:28] LABS: PH,URINE 6.5 (5.0-8.0); URINE APPEARANCE CLEAR; URINE BILIRUBIN NEGATIVE (NEGATIVE); URINE COLOR YELLOW; URINE GLUCOSE (UA) NEGATIVE (NEGATIVE); URINE KETONE NEGATIVE (NEGATIVE); URINE LEUK ESTERASE NEGATIVE (NEGATIVE); URINE NITRITE NEGATIVE (NEGATIVE); URINE PROTEIN NEGATIVE (NEGATIVE); URINE UROBILINOGEN 0.2 mg/dL (0.2-1.0)
[2020-09-30 16:31] LABS: POTASSIUM 4.2 mmol/L (3.5-5.1)
[2020-09-30 16:33] LABS: CALCIUM 9.4 mg/dL (8.5-10.1)
[2020-09-30 16:34] LABS: ALBUMIN 4.2 g/dl (3.4-5.0); BLOOD UREA NITROGEN 15.6 mg/dL (7-18)
[2020-09-30 16:38] LABS: BILIRUBIN,TOTAL 0.5 mg/dL (0.2-1); TOT PROT 7.8 g/dl (6.4-8.2)
[2020-09-30 18:31] VITALS: BP 123/78; PULSE 66
== END 2020-09-30 18:34 | disposition home or self-care (01) ==
LOC: JER 13:00
PROC: 3E033GC Introduction of Other Therapeutic Substance into Peripheral Vein, Percutaneous Approach (ICD-10-PCS; principal; 2020-09-30)
DX: R42 Dizziness and giddiness (principal)
CPT/HCPCS: 36415; 70450-TC; 80053; 81003; 85025; 87086; 99285-25

== ENCOUNTER 2021-04-22 11:27 | Emergency (ER) | payer OTHER ==
[2021-04-22 12:00] VITALS: BP 138/85; PULSE 75; TEMP 97.8; BMI 36.6
[2021-04-22 14:19] LABS: HIV INTERPRETATION NEGATIVE (NEGATIVE)
== END 2021-04-22 13:03 | disposition home or self-care (01) ==
LOC: JERFT 11:27
DX: Z77.21 Contact with and (suspected) exposure to potentially hazardous body fluids (principal)
CPT/HCPCS: 36415; 86704; 86706; 86803; 87340; 87389; 87517; 99283-25

== ENCOUNTER 2022-05-09 12:58 | Observation (INO) | payer OTHER ==
[2022-05-09 13:02] VITALS: BMI 38.5
[2022-05-09 16:07] LABS: BASO % 0.1 % (0-2.0); EOS % 0.1 % (0-4.5); HEMATOCRIT 42.3 % (35.4-49); LYMPH % 4.4 % (8-40); MCH 29.2 pg (25.7-33.7); MEAN CELL VOLUME 88.3 fl (80-96); MEAN PLT VOLUME 9.4 fl (7.5-11.1); MONO % 5.8 % (3.8-10.2); NEUT % 89.6 % (42.8-82.8); PLATELET COUNT 186 10^3/uL (134-434); RBC 4.79 M/mm3 (4.00-5.60); RDW 14.7 % (11.9-15.9); WHITE BLOOD COUNT 13.3 K/mm3 (4.0-10.0)
[2022-05-09 16:21] LABS: ALBUMIN 4.1 g/dl (3.4-5.0); CALCIUM 9.5 mg/dL (8.5-10.1)
[2022-05-09 16:24] LABS: CREATININE 0.9 mg/dL (0.55-1.3)
[2022-05-09 16:26] LABS: TOT PROT 7.4 g/dl (6.4-8.2)
[2022-05-09 16:27] LABS: BILIRUBIN,TOTAL 0.7 mg/dL (0.2-1)
[2022-05-09] MEDS ORDERED: SODIUM CHLORIDE 0.9% 500 ML INFUS.BAG IV ONE (16:31)
[2022-05-09 16:34] LABS: INR 1.21 (0.83-1.09); PROTHROMBIN TIME (PATIENT) 13.9 SEC (9.7-13.0)
[2022-05-09 16:37] LABS: ACTIVATED PTT 28.7 SECONDS (25.2-36.5)
[2022-05-09 17:12] LABS: BLOOD UREA NITROGEN 17.1 mg/dL (7-18)
[2022-05-09] MEDS ORDERED: ACETAMINOPHEN 325 MG TABLET (FP) PO PRN (19:44)
[2022-05-09] MEDS ORDERED: DOCUSATE SODIUM 100 MG CAPSULE (FP) PO PRN (19:44)
[2022-05-09] MEDS ORDERED: LACTATED RINGERS SOLUTION 1,000 ML IV SCH (19:45)
[2022-05-10] MEDS ORDERED: TAMSULOSIN HCL 0.4 MG CAP PO SCH (02:45)
[2022-05-10] MEDS ORDERED: ACETAMINOPHEN 325 MG TABLET (FP) ONE (02:53)
[2022-05-10] MEDS ORDERED: TAMSULOSIN HCL 0.4 MG CAP ONE (03:02)
[2022-05-10 04:37] VITALS: RESP 18
[2022-05-10] MEDS ORDERED: MAG HYDROX/AL HYDROX/SIMETH 30 ML UNIT-DOSE CUP PO PRN (04:42)
[2022-05-10 06:55] VITALS: TEMP 98.6
[2022-05-10] MEDS ORDERED: PANTOPRAZOLE 40 MG TABLET PO ONE (08:31)
[2022-05-10] MEDS ORDERED: LISINOPRIL 10 MG TABLET ONE (08:32)
[2022-05-10] MEDS ORDERED: PNEUMOC 20-VAL CONJ-DIP CRM/PF 0.5 ML SYRINGE IM ONE (09:00)
[2022-05-10] MEDS ORDERED: PANTOPRAZOLE 40 MG TABLET PO SCH (10:00)
[2022-05-10] MEDS ORDERED: LISINOPRIL 10 MG TABLET PO SCH (10:00)
[2022-05-10 10:17] LABS: BASO % 0.2 % (0-2.0); EOS % 0.8 % (0-4.5); HEMATOCRIT 39.7 % (35.4-49); HEMOGLOBIN 13.1 GM/dL (11.7-16.9); LYMPH % 12.8 % (8-40); MCH 29.5 pg (25.7-33.7); MCHC 33.1 g/dl (32.0-35.9); MEAN CELL VOLUME 89.1 fl (80-96); MEAN PLT VOLUME 9.3 fl (7.5-11.1); MONO % 11.3 % (3.8-10.2); NEUT % 74.9 % (42.8-82.8); PLATELET COUNT 158 10^3/uL (134-434); RBC 4.46 M/mm3 (4.00-5.60); RDW 14.9 % (11.9-15.9); WHITE BLOOD COUNT 7.8 K/mm3 (4.0-10.0)
[2022-05-10 11:17] LABS: MAGNESIUM 2.2 mg/dL (1.8-2.4)
[2022-05-10 11:21] LABS: PHOSPHOROUS 2.6 mg/dL (2.5-4.9)
[2022-05-10 11:37] VITALS: BP 134/80; PULSE 76
[2022-05-10] MEDS ORDERED: ATORVASTATIN CA 40 MG TABLET (FP) PO SCH (22:00)
== END 2022-05-10 11:42 | disposition home or self-care (01) ==
LOC: JER 12:58 → JERBED 18:03
PROVIDERS: ADMIT Internal Medicine; ATTEND Internal Medicine
PROC: 3E0337Z Introduction of Electrolytic and Water Balance Substance into Peripheral Vein, Percutaneous Approach (ICD-10-PCS; principal; 2022-05-09)
PROC: 3E0234Z Introduction of Serum, Toxoid and Vaccine into Muscle, Percutaneous Approach (ICD-10-PCS; 2022-05-09)
PROC: 3E0337Z Introduction of Electrolytic and Water Balance Substance into Peripheral Vein, Percutaneous Approach (ICD-10-PCS; 2022-05-09)
DX: M54.50 Low back pain, unspecified (principal); S00.03XA Contusion of scalp, initial encounter; W18.39XA Other fall on same level, initial encounter; Y93.89 Activity, other specified; Y92.002 Bathroom of unspecified non-institutional (private) residence as the place of occurrence of the external cause; E66.8 Other obesity; Z68.38 Body mass index [BMI] 38.0-38.9, adult; R55 Syncope and collapse; Z98.84 Bariatric surgery status; K29.70 Gastritis, unspecified, without bleeding; R07.9 Chest pain, unspecified; N40.0 Benign prostatic hyperplasia without lower urinary tract symptoms; R07.89 Other chest pain
CPT/HCPCS: 0241U-QW; 36415; 70450-TC; 71046-TC-FY; 71101-TC-RT-FY; 76937; 80053; 82550; 82553; 83735; 84100; 84484; 85025; 85610; 85730; 90677; 93005; 93010; 96360; 96372; 99285-25; G0378

== ENCOUNTER 2023-07-31 16:17 | Emergency (ER) | payer OTHER ==
[2023-07-31 16:25] VITALS: BP 154/75; PULSE 71; RESP 18; TEMP 98; BMI 39.4
[2023-07-31] MEDS ORDERED: ACETAMINOPHEN INJECTION 100 ML IVPB ONE (18:39)
[2023-07-31] MEDS ORDERED: ONDANSETRON 4 MG/2 ML VIAL ONE (18:39)
[2023-07-31] MEDS: ACETAMINOPHEN 1000 MG/100 ML BAG IVPB ONE (18:54)
[2023-07-31] MEDS: SODIUM CHLORIDE 1,000 ML IV STA (18:54)
[2023-07-31] MEDS: ONDANSETRON 4 MG/2 ML VIAL IVPUSH ONE (18:55)
[2023-07-31 19:07] LABS: BASO % 0.4 % (0-2.0); EOS % 1.7 % (0-4.5); HEMATOCRIT 40.9 % (35.4-49); HEMOGLOBIN 13.5 GM/dL (11.7-16.9); LYMPH % 14.2 % (8-40); MCH 30.1 pg (25.7-33.7); MCHC 33.1 g/dl (32.0-35.9); MEAN CELL VOLUME 90.9 fl (80-96); MEAN PLT VOLUME 8.7 fl (7.5-11.1); MONO % 9.2 % (3.8-10.2); NEUT % 74.5 % (42.8-82.8); PLATELET COUNT 163 10^3/uL (134-434); RDW 14.3 % (11.9-15.9); WHITE BLOOD COUNT 8.3 K/mm3 (4.0-10.0)
[2023-07-31 19:11] LABS: INR 1.2 (0.83-1.09); PROTHROMBIN TIME (PATIENT) 13.9 SEC (9.7-13.0)
[2023-07-31 19:14] LABS: ACTIVATED PTT 31.5 SECONDS (25.2-36.5)
[2023-07-31 19:41] LABS: PH,URINE 5.5 (5.0-8.0); URINE APPEARANCE CLEAR; URINE BILIRUBIN NEGATIVE (NEGATIVE); URINE COLOR YELLOW; URINE GLUCOSE (UA) NEGATIVE (NEGATIVE); URINE KETONE NEGATIVE (NEGATIVE); URINE LEUK ESTERASE NEGATIVE (NEGATIVE); URINE NITRITE NEGATIVE (NEGATIVE); URINE PROTEIN NEGATIVE (NEGATIVE); URINE UROBILINOGEN 0.2 mg/dL (0.2-1.0)
[2023-07-31 20:33] LABS: ALBUMIN 3.6 g/dl (3.4-5.0); POTASSIUM 4.9 mmol/L (3.5-5.1)
[2023-07-31 20:38] LABS: CREATININE 0.9 mg/dL (0.55-1.3)
[2023-07-31 20:40] LABS: BILIRUBIN,TOTAL 0.7 mg/dL (0.2-1)
[2023-07-31] MEDS: DIPHTH,PERTUSS(ACELL),TET 0.5 ML DISP.SYRIN IM ONE (22:15)
[2023-07-31] MEDS ORDERED: DIPHTH,PERTUSS(ACELL),TET 0.5 ML DISP.SYRIN IM ONE (22:18)
[2023-07-31] MEDS ORDERED: BACITRACIN 0.9 GM PACKET ONE (22:18)
[2023-07-31] MEDS: BACITRACIN ZINC 15 GM TUBE TOPICAL OINTMENT TP ONE (22:20)
[2023-07-31] MEDS ORDERED: BACITRACIN ZINC 15 GM TUBE TOPICAL OINTMENT ONE (22:22)
== END 2023-07-31 22:29 | disposition home or self-care (01) ==
LOC: JER 16:17
PROC: 3E033NZ Introduction of Analgesics, Hypnotics, Sedatives into Peripheral Vein, Percutaneous Approach (ICD-10-PCS; principal; 2023-07-31)
PROC: 3E033GC Introduction of Other Therapeutic Substance into Peripheral Vein, Percutaneous Approach (ICD-10-PCS; 2023-07-31)
PROC: 3E0337Z Introduction of Electrolytic and Water Balance Substance into Peripheral Vein, Percutaneous Approach (ICD-10-PCS; 2023-07-31)
PROC: 3E0234Z Introduction of Serum, Toxoid and Vaccine into Muscle, Percutaneous Approach (ICD-10-PCS; 2023-07-31)
DX: R53.1 Weakness (principal); R55 Syncope and collapse; R19.7 Diarrhea, unspecified; R11.0 Nausea; R42 Dizziness and giddiness; Z20.822 Contact with and (suspected) exposure to COVID-19
CPT/HCPCS: 0241U-QW; 36415; 70450-TC; 71046-TC-FY; 80053; 81003; 84484; 85025; 85610; 85730; 87086; 90471; 90715; 93005; 93010; 96360; 96374; 96375; 99285-25; J0131